=== PATIENT | male | born 2000 | race Caucasian/White ===

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

== ENCOUNTER 2019-09-18 15:17 | Emergency (ER) | payer OTHER ==
[2019-09-18 15:41] VITALS: BP 107/74; PULSE 84; TEMP 98; BMI 26.4
[2019-09-18] MEDS ORDERED: KETOROLAC TROMETHAMINE 60 MG/2 ML VIAL IM ONE (16:01)
[2019-09-18] MEDS ORDERED: KETOROLAC TROMETHAMINE 60 MG/2 ML VIAL ONE (16:04)
--- NOTE | 2019-09-18 16:14 | PDOC ---
History of Present Illness - General Chief Complaint: Back Pain Stated Complaint: BACK PAIN Time Seen by Provider: 09/18/19 15:45 - History of Present Illness Initial Comments: 09/18/19 16:12 19-year-old male without comorbidities presents for evaluation of left-sided upper back pain x1 day. He feels he may have hurt his back doing squats yesterday. No radiation of symptoms no systemic symptoms no urinary symptoms Past History - Past Medical History Allergies/Adverse Reactions: Allergies Allergy/AdvReac Type Severity Reaction Status Date / Time No Known Allergies Allergy Verified 09/18/19 15:38 Home Medications: Ambulatory Orders Cyclobenzaprine HCl [Flexeril 10 mg] 10 mg PO HS PRN #10 tablet 09/18/19 Ibuprofen [Motrin -] 600 mg PO TID #30 tablet 09/18/19 COPD: No - Immunization History Immunization Up to Date: Yes - Psycho Social/Smoking Cessation Hx Smoking History: Never smoked Have you smoked in the past 12 months: No Information on smoking cessation initiated: No Hx Alcohol Use: No Drug/Substance Use Hx: No Substance Use Type: None Review of Systems - Review of Systems Constitutional: No: Fever : No: Dysuria, Flank Pain Musculoskeletal: Yes: Back Pain *Physical Exam - Vital Signs Last Vital Signs Temp Pulse Resp BP Pulse Ox 98 F 84 16 107/74 100 09/18/19 15:36 09/18/19 15:36 09/18/19 15:36 09/18/19 15:36 09/18/19 15:36 - Physical Exam Comments: 09/18/19 16:12 Cervical thoracic and lumbar spine skin color and temperature normal range of motion is full. There is no midline tenderness. Mild left-sided parathoracic musculature spasm and tenderness. 5 out of 5 strength bilateral upper and lower extremities without gross sensorimotor deficits neurovascular intact. ED Treatment Course - Medications Given in the ED: ED Medications Discontinued Medications Generic Name Dose Route Start Last Admin Trade Name Freq PRN Reason Stop Dose Admin Ketorolac Tromethamine 60 mg 09/18/19 16:01 09/18/19 16:08 Toradol Injection - IM 09/18/19 16:02 60 mg ONCE ONE Administration Medical Decision Making - Medical Decision Making 09/18/19 16:12 Palpable tenderness and spasm on the left parathoracic musculature. Very reproducible. This is a muscle strain. Toradol in the emergency room Flexeril and Motrin at home follow-up with Ortho Discharge - Discharge Information Problems reviewed: Yes Clinical Impression/Diagnosis: Upper back strain Condition: Stable Disposition: HOME - Admission No - Follow up/Referral Referrals: Elmer Olsen DO [Staff Physician] - - Patient Discharge Instructions Additional Instructions: He was given a long-acting anti-inflammatory in the emergency room. Do not take any Motrin this evening. You may start the prescription strength Motrin tomorrow you may start the muscle relaxer this evening. Return to the emergency room for worsening symptoms and without fail please follow-up with orthopedic surgery in 2 to 3 days for further evaluation and treatment options. - Post Discharge Activity
== END 2019-09-18 16:27 | disposition home or self-care (01) ==
LOC: JERFT 15:17
PROC: 3E0233Z Introduction of Anti-inflammatory into Muscle, Percutaneous Approach (ICD-10-PCS; principal; 2019-09-18)
DX: S29.012A Strain of muscle and tendon of back wall of thorax, initial encounter (principal); X50.9XXA Other and unspecified overexertion or strenuous movements or postures, initial encounter; Y93.B9 Activity, other involving muscle strengthening exercises; Y92.89 Other specified places as the place of occurrence of the external cause; Y99.8 Other external cause status
CPT/HCPCS: 96372; 99281-25

== ENCOUNTER 2022-01-24 11:54 | Emergency (ER) | payer OTHER ==
[2022-01-24 12:08] VITALS: BP 93/56; PULSE 78; TEMP 98; BMI 26.1
== END 2022-01-24 13:12 | disposition home or self-care (01) ==
LOC: JERFT 11:54
DX: S86.911A Strain of unspecified muscle(s) and tendon(s) at lower leg level, right leg, initial encounter (principal); Y93.64 Activity, baseball
CPT/HCPCS: 73564-TC-RT-FY; 99283-25